=== PATIENT | male | born 1990 | race Caucasian/White ===

== ENCOUNTER 2020-05-08 21:50 | Emergency (ER) | payer OTHER ==
[~2020-05-08] VITALS: Ht 182.9 cm; Wt 83.6 kg
[2020-05-08 21:51] VITALS: BP 139/99
[2020-05-08] MEDS ORDERED: ACET-861 PO (21:55)
--- NOTE | 2020-05-08 23:25 | REPVR ---
PROCEDURE INFORMATION: Exam: XR Right Foot Exam date and time: 05/08/2020 11:06 PM Age: 29 years old Clinical indication: Pain; Foot; Right; Additional info: Fell down stairs TECHNIQUE: Imaging protocol: XR Right foot. Views: 3 or more views. COMPARISON: No relevant prior studies available. FINDINGS: Bones/joints: Normal. No fracture. Soft tissues: Normal. IMPRESSION: Negative right foot. Electronically signed by: Viet Hill On 05/08/2020 23:25:22 PM
--- NOTE | 2020-05-08 23:27 | REPVR ---
PROCEDURE INFORMATION: Exam: XR Right Shoulder Exam date and time: 05/08/2020 11:06 PM Age: 29 years old Clinical indication: Pain; Shoulder; Right; Additional info: Fell down stairs TECHNIQUE: Imaging protocol: XR Right shoulder. Views: 2 or more views. COMPARISON: No relevant prior studies available. FINDINGS: Bones/joints: Probable right scapular fracture of the blade which may extend to the inferior glenoid. Soft tissues: Normal. IMPRESSION: 1. Probable fracture of the right scapular blade. 2. Otherwise negative right shoulder. Electronically signed by: Viet Hill On 05/08/2020 23:27:36 PM
[2020-05-08] MEDS ORDERED: KETOROLAC TROMETHAMINE 10 MG TAB PO ONE (23:30)
--- NOTE | 2020-05-09 00:29 | REPVR ---
PROCEDURE INFORMATION: Exam: CT Right Upper Extremity Without Contrast, Shoulder Exam date and time: 05/08/2020 12:02 AM Age: 29 years old Clinical indication: Injury or trauma; Fall; Fracture, traumatic injury; Displaced; Scapula; Right; Additional info: Scapular 3d recon with humerus subtraction for scapula FX TECHNIQUE: Imaging protocol: CT of the Right upper extremity without contrast was performed. Exam focused on the shoulder. Radiation optimization: All CT scans at this facility use at least one of these dose optimization techniques: automated exposure control; mA and/or kV adjustment per patient size (includes targeted exams where dose is matched to clinical indication); or iterative reconstruction. COMPARISON: CR Shoulder, complete RIGHT 05/08/2020 10:52 PM FINDINGS: Bones/joints: Comminuted fracture of the right scapular blade with mild displacement of some fragments. The glenohumeral joint space is adequately well maintained. Soft tissues: Normal. IMPRESSION: Comminuted fracture of the right scapular blade with mild displacement of fragments. Electronically signed by: Viet Hill On 05/09/2020 00:29:01 AM
[2020-05-09] MEDS ORDERED: OXYCODONE/APAP 5MG/325MG(BULK FOR ED) 1 TABLET PO ONE (00:30)
== END 2020-05-09 01:15 | disposition home or self-care (01) ==
LOC: M ED 21:50
DX: S42.101A Fracture of unspecified part of scapula, right shoulder, initial encounter for closed fracture (principal); W10.9XXA Fall (on) (from) unspecified stairs and steps, initial encounter; Y92.099 Unspecified place in other non-institutional residence as the place of occurrence of the external cause; Y93.9 Activity, unspecified; Y99.9 Unspecified external cause status